=== PATIENT | female | born 1995 | race Caucasian/White ===

== ENCOUNTER 2018-05-31 16:55 | Emergency (ER) | payer BC, OTHER ==
[2018-05-31] MEDS ORDERED: NA CHLORIDE 0.9% 1,000 ML ONE (18:04)
--- NOTE | 2018-05-31 18:06 | RAD REPORT ---
EXAM DESCRIPTION: CT - Head Brain Wo Cont - 05/31/2018 5:58 pm CLINICAL HISTORY: HEADACHE COMPARISON: HEAD BRAIN W O CONTRAST dated 07/16/2011; HEAD BRAIN W O CONTRAST dated 06/29/2011 TECHNIQUE: All CT scans are performed using dose optimization technique as appropriate and may inclu de automated exposure control or mA/KV adjustment according to patient size. FINDINGS: No intracranial hemorrhage, hydrocephalus or extra-axial fluid collection.No areas of brai n edema or evidence of midline shift. The paranasal sinuses and mastoids are clear. The calvarium is intact. IMPRESSION: No acute intracranial abnormality.
[2018-05-31 18:08] LABS: Absolute Lymphocytes (CBC) 1.5 K/uL (0.7-4.9); Absolute Monocytes 0.4 K/uL (0.1-1.3); Absolute Neutrophil 4.4 K/uL (1.8-8.0); Basophils % 0.7 % (0-1.3); Eosinophils % 2.2 % (0-4.4); Hematocrit 40.5 % (36.0-45.0); Lymphocytes % 23.3 % (15.3-44.8); MCH 31.3 pg (27.0-35.0); MCV 91.3 fL (80-100); MPV 8.6 fL (7.6-11.3); Monocytes % 6.5 % (3.3-12.3); RBC Red Blood Cell Count 4.44 M/uL (3.86-4.86)
[2018-05-31 18:20] LABS: BUN Blood Urea Nitrogen 6 mg/dL (7-18); Bicarbonate 24 mmol/L (21-32); Glucose Level 81 mg/dL (74-106); Magnesium 2.1 mg/dL (1.8-2.4); Potassium 3.7 mmol/L (3.5-5.1); Sodium Level 143 mmol/L (136-145)
[2018-05-31] MEDS ORDERED: METOCLOPRAMIDE 10 MG/2mL INJ ONE (18:34)
[2018-05-31] MEDS ORDERED: DEXAMETHASONE 4 MG/ML VIAL ONE (18:35)
[2018-05-31] MEDS ORDERED: ONDANSETRON 4 MG/2 ML VIAL ONE (18:35)
--- NOTE | 2018-05-31 19:01 | RAD REPORT ---
EXAM DESCRIPTION: CT - Head angio - 05/31/2018 6:51 pm CLINICAL HISTORY: headache COMPARISON: Head Brain Wo Cont dated 05/31/2018; HEAD BRAIN W O CONTRAST dated 07/16/2011 TECHNIQUE: CT angiography of the head was performed with MIPs. All CT scans are performed using dose optimization technique as appropriate and may include automated exposure control or mA/KV adjustment according to patient size. FINDINGS: No evidence of aneurysm is detected. No flow-limiting stenosis or vascular malformation id entified. Antegrade flow is seen in the vertebral arteries. The vertebral arteries are codominant. The visualized dural venous sinuses are patent. IMPRESSION: No significant flow abnormality is detected.
[2018-05-31 19:34] LABS: Urine Blood NEGATIVE (NEG); Urine Glucose NEGATIVE (NEG); Urine Protein NEGATIVE (NEG); Urine Specific Gravity 1.005 (1.005-1.030)
--- NOTE | 2018-05-31 19:48 | ER ---
Nurse's Notes [facility] Name: America Gallegos Age: 22 yrs Sex: Female : 1995 Arrival Date: 05/31/2018 Time: 16:57 Bed 30 Private MD: Diagnosis: Headache Presentation: 05/31 17:10 Presenting complaint: Patient states: "I've been getting headaches for the last few aa5 months but over the last 3 days it's been worse". Pt also reports Nausea and vomiting. Transition of care: patient was not received from another setting of care. Onset of symptoms was 2017. Risk Assessment: Do you want to hurt yourself or someone else? Patient reports no desire to harm self or others. Initial Sepsis Screen: Does the patient meet any 2 criteria? No. Patient's initial sepsis screen is negative. Does the patient have a suspected source of infection? No. Patient's initial sepsis screen is negative. Care prior to arrival: None. 17:10 Method Of Arrival: Ambulatory aa5 17:10 Acuity: LYDIA 3 aa5 Triage Assessment: 18:00 Headache History: Denies prior headaches. General: Appears in no apparent distress. rv uncomfortable, Behavior is calm, cooperative. Pain: Pain currently is 10 out of 10 on a pain scale. Pain began suddenly, Also complains of no other associated symptoms. 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 - Social history:: Smoking status: Patient uses tobacco products, smokes one-half pack cigarettes per day. - Ebola Screening: : No symptoms or risks identified at this time. Screenin:59 Abuse screen: Denies threats or abuse. Denies injuries from another. Nutritional rv screening: No deficits noted. Tuberculosis screening: No symptoms or risk factors identified. Fall Risk None identified. Assessment: 17:59 General: Appears in no apparent distress. comfortable, Behavior is calm, cooperative. rv Pain: Complains of pain in head. Neuro: Level of Consciousness is awake, alert, obeys commands, Oriented to person, place, time, situation. Cardiovascular: Capillary refill < 3 seconds. Respiratory: Airway is patent. GI: No signs and/or symptoms were reported involving the gastrointestinal system. : No signs and/or symptoms were reported regarding the genitourinary system. EENT: No signs and/or symptoms were reported regarding the EENT system. Derm: Skin is intact. 19:17 Reassessment: Patient appears in no apparent distress at this time. Patient and/or rv family updated on plan of care and expected duration. Pain level reassessed. Patient is alert, oriented x 3, equal unlabored respirations, skin warm/dry/pink. Vital Signs: 17:12 BP 123 / 85; Pulse 87; Resp 16 S; Temp 98.7(TE); Pulse Ox 100% on R/A; Weight 58.97 kg aa5 (R); Height 5 ft. 7 in. (170.18 cm) (R); Pain 6/10; 19:16 BP 112 / 79; Pulse 71; Pulse Ox 100% on R/A; rv 19:48 BP 115 / 74; Pulse 72; Pulse Ox 100% on R/A; rv 17:12 Body Mass Index 20.36 (58.97 kg, 170.18 cm) aa5 ED Course: 16:57 Patient arrived in ED. mr 17:12 Triage completed. aa5 17:12 Arm band placed on. aa5 17:36 Thai Bright PA is PHCP. cp 17:36 Milan Edge MD is Attending Physician. cp 17:55 Inserted saline lock: 20 gauge in right antecubital area, using aseptic technique. rv Blood collected. 17:58 CT Head Brain wo Cont In Process Unspecified. EDMS 18:00 Patient has correct armband on for positive identification. Bed in low position. Call rv light in reach. Side rails up X 1. Adult w/ patient. Pulse ox on. NIBP on. 18:[address] nj 18:51 Head angio In Process Unspecified. EDMS 18:55 CT completed. Patient tolerated procedure well. Patient moved back from CT. nj 19:49 No provider procedures requiring assistance completed. IV discontinued, bleeding rv controlled, No redness/swelling at site. Pressure dressing applied. Administered Medications: 18:02 Drug: NS 0.9% 1000 ml Route: IV; Rate: 1 bolus; Site: right antecubital; rv 19:02 Follow up: IV Status: Completed infusion rv 19:01 Drug: Reglan 20 mg Route: IVP; Site: right antecubital; rv 19:01 Drug: Zofran 4 mg Route: IVP; Site: right antecubital; rv 19:01 Drug: Decadron - Dexamethasone 10 mg Route: IVP; Site: right antecubital; rv Outcome: 19:47 Discharge ordered by MD. cp 19:49 Discharged to home ambulatory. rv 19:49 Condition: improved 19:49 Discharge instructions given to patient, Instructed on discharge instructions, follow up and referral plans. medication usage, Demonstrated understanding of instructions, follow-up care, medications, Prescriptions given X 3. 19:52 Patient left the ED. rv Signatures: Dispatcher [employer] Rebeca Ricks KohliVeda lincoln, RN RN aa5 Thai Bright PA PA cp Jordan, Nathan nj Vicente, Ronaldo RN RN rv
--- NOTE | 2018-05-31 19:48 | EDPHYS ---
Physician Documentation [facility] Name: America Gallegos Age: 22 yrs Sex: Female : 1995 Arrival Date: 05/31/2018 Time: 16:57 Bed 30 Private MD: ED Physician Milan Edge HPI: 05/31 17:50 This 22 yrs old Female presents to ER via Ambulatory with complaints of cp Headache. 17:50 The patient complains of pain to the top of head and forehead. cp 17:50 The patient describes the headache as aching, waxing and waning. Onset: The cp symptoms/episode began/occurred for past few months, now persistent for past 3 days. 17:50 Associated signs and symptoms: Pertinent positives: nausea, Photophobia Pertinent cp negatives: altered mental status, neck stiffness, sinus congestion, sinus tenderness, vision loss, vomiting, weakness. Headache History: Denies prior headaches. 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 - Social history:: Smoking status: Patient uses tobacco products, smokes one-half pack cigarettes per day. - Ebola Screening: : No symptoms or risks identified at this time. ROS: 18:00 Constitutional: Negative for body aches, chills, fever, poor PO intake. cp 18:00 ENT: Negative for injury, pain, and discharge. cp 18:00 Eyes: Positive for photophobia, Negative for discharge, redness, vision loss. 18:00 Neck: Negative for pain with movement, pain at rest, stiffness. 18:00 Cardiovascular: Negative for chest pain, edema, palpitations. 18:00 Respiratory: Negative for cough, shortness of breath, wheezing. 18:00 Abdomen/GI: Positive for nausea, Negative for abdominal pain, vomiting, diarrhea, constipation. 18:00 Back: Negative for pain at rest, pain with movement, radiated pain. 18:00 : Negative for urinary symptoms, vaginal bleeding, vaginal discharge. 18:00 Skin: Negative for cellulitis, rash. 18:00 Neuro: Positive for headache, Negative for altered mental status, numbness, weakness. 18:00 All other systems are negative. Exam: 18:05 Constitutional: The patient appears in no acute distress, alert, awake, non-toxic, well cp developed, well nourished, uncomfortable. 18:05 Head/Face: Normocephalic, atraumatic. cp 18:05 Eyes: Periorbital structures: appear normal, Pupils: equal, round, and reactive to light and accomodation, Extraocular movements: intact throughout, Conjunctiva: normal, no exudate, no injection, Sclera: no appreciated abnormality, Lids and lashes: appear normal, bilaterally, Visual tejeda: are intact. 18:05 ENT: External ear(s): are unremarkable, Ear canal(s): are normal, clear, TM's: dullness, bilaterally, Nose: is normal, Mouth: Lips: moist, Oral mucosa: pink and intact, moist, Posterior pharynx: is normal, airway is patent, no erythema, no exudate. 18:05 Neck: ROM/movement: is normal, is supple, without pain, no range of motions limitations, no meningismus, no nuchal rigidity, Lymph nodes: no appreciated lymphadenopathy. 18:05 Chest/axilla: Inspection: normal, Palpation: is normal, no crepitus, no tenderness. 18:05 Cardiovascular: Rate: normal, Rhythm: regular, Heart sounds: murmur, not appreciated. 18:05 Respiratory: the patient does not display signs of respiratory distress, Respirations: normal, no use of accessory muscles, no retractions, no splinting, no tachypnea, labored breathing, is not present, Breath sounds: are clear throughout, no decreased breath sounds, no stridor, no wheezing. 18:05 Abdomen/GI: Inspection: abdomen appears normal, Bowel sounds: active, all quadrants, Palpation: abdomen is soft and non-tender, in all quadrants, rebound tenderness, is not appreciated, involuntary guarding, is not appreciated. 18:05 Back: pain, is absent, ROM is normal. 18:05 Skin: cellulitis, is not appreciated, no rash present. 18:05 Neuro: Orientation: to person, place \T\ time. Mentation: is normal, Cerebellar function: is grossly normal, Motor: moves all fours, strength is normal, Sensation: is normal. Vital Signs: 17:12 BP 123 / 85; Pulse 87; Resp 16 S; Temp 98.7(TE); Pulse Ox 100% on R/A; Weight 58.97 kg aa5 (R); Height 5 ft. 7 in. (170.18 cm) (R); Pain 6/10; 19:16 BP 112 / 79; Pulse 71; Pulse Ox 100% on R/A; rv 19:48 BP 115 / 74; Pulse 72; Pulse Ox 100% on R/A; rv 17:12 Body Mass Index 20.36 (58.97 kg, 170.18 cm) aa5 MDM: 17:36 Patient medically screened. cp 18:00 Differential diagnosis: cluster headache, meningitis, migraine, neoplasm, sinusitis, cp subarachnoid bleed, subdural hematoma, tension headache, traumatic injuries. 19:47 Data reviewed: vital signs, nurses notes, lab test result(s), radiologic studies, CT cp scan. 19:47 Counseling: I had a detailed discussion with the patient and/or guardian regarding: the cp historical points, exam findings, and any diagnostic results supporting the discharge/admit diagnosis, lab results, radiology results. Response to treatment: the patient's symptoms have markedly improved after treatment, VSS. Patient reports headache markedly improved, and as a result, I will discharge patient. 05/31 17:45 Order name: BMP; Complete Time: 18:22 cp 05/31 17:45 Order name: Magnesium; Complete Time: 18:22 cp 05/31 17:45 Order name: CT Head Brain wo Cont; Complete Time: 18:16 cp 05/31 17:45 Order name: CBC with Diff; Complete Time: 18:16 cp 05/31 19:17 Order name: Urine --Ancillary (enter results); Complete Time: 19:47 ds4 05/31 19:17 Order name: Urine Dipstick--Ancillary (enter results); Complete Time: 19:47 ds4 05/31 17:45 Order name: Urine Dipstick-Ancillary (obtain specimen); Complete Time: 19:15 cp 05/31 17:45 Order name: Urine Test (obtain specimen); Complete Time: 19:15 cp 05/31 18:26 Order name: Head angio; Complete Time: 19:10 EDMS 05/31 19:10 Interpretation: Report reviewed. cp 05/31 17:45 Order name: IV; Complete Time: 17:56 cp Administered Medications: 18:02 Drug: NS 0.9% 1000 ml Route: IV; Rate: 1 bolus; Site: right antecubital; rv 19:02 Follow up: IV Status: Completed infusion rv 19:01 Drug: Reglan 20 mg Route: IVP; Site: right antecubital; rv 19:01 Drug: Zofran 4 mg Route: IVP; Site: right antecubital; rv 19:01 Drug: Decadron - Dexamethasone 10 mg Route: IVP; Site: right antecubital; rv Disposition: 05/31/18 19:47 Discharged to Home. Impression: Headache. - Condition is Stable. - Discharge Instructions: Migraine Headache. - Prescriptions for Fiorinal 50- 325-40 mg Oral Capsule - take 1 capsule by ORAL route every 4 hours As needed - not to exceed 6 capsules per day; 20 capsule. Ibuprofen 800 mg Oral Tablet - take 1 tablet by ORAL route every 8 hours As needed take with food; 30 tablet. promethazine 25 mg Oral Tablet - take 1 tablet by ORAL route every 6 hours As needed; 20 tablet. - Medication Reconciliation Form, Thank You Letter, Antibiotic Education, Prescription Opioid Use form. - Follow up: Private Physician; When: 2 - 3 days; Reason: Recheck today's complaints. - Problem is new. - Symptoms have improved. Addendum: 06/03/2018 07:48 Co-signature as Attending Physician, Milan Edge MD. r n Signatures: Dispatcher [employer] EDMilan Neumann MD MD rn Calderon, Audri RN RN aa5 Thai Bright PA PA cp Stevie Dennison RN RN rv Corrections: (The following items were deleted from the chart) 05/31 19:52 19:47 05/31/2018 19:47 Discharged to Home. Impression: Headache. Condition is Stable. rv Forms are Medication Reconciliation Form, Thank You Letter, Antibiotic Education, Prescription Opioid Use. Follow up: Private Physician; When: 2 - 3 days; Reason: Recheck today's complaints. Problem is new. Symptoms have improved. cp
[2018-05-31 20:07] VITALS: TEMP 98.7; O2SAT 100
[2018-05-31 20:09] VITALS: BP 115/74
== END 2018-05-31 19:52 | disposition home or self-care (01) ==
LOC: ER 16:55
DX: R51 Headache (principal); F17.210 Nicotine dependence, cigarettes, uncomplicated
CPT/HCPCS: 36415; 70450; 70496; 80048; 81003; 81025; 83735; 85025; 96361; 96374; 96375; 99284; J2405; J2765; J7030; Q9967

== ENCOUNTER 2018-11-08 09:12 | Emergency (ER) | payer BC ==
--- NOTE | 2018-11-08 12:29 | ER ---
Nurse's Notes [facility] Name: America Gallegos Age: 23 yrs Sex: Female : 1995 Arrival Date: 11/08/2018 Time: 09:15 Bed Waiting Private MD: Diagnosis: Presentation: 11/08 09:41 Presenting complaint: Patient states: Sore and swollen throat x 1 month, states, " I ph feel like it's in my ears now when I turn my head." Denies fever, N/V/D. Transition of care: patient was not received from another setting of care. Onset of symptoms was November 08, 2018. Risk Assessment: Do you want to hurt yourself or someone else? Patient reports no desire to harm self or others. Initial Sepsis Screen: Does the patient meet any 2 criteria? No. Patient's initial sepsis screen is negative. Does the patient have a suspected source of infection? No. Patient's initial sepsis screen is negative. Care prior to arrival: None. 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 - Social history:: Smoking status: Patient/guardian denies using tobacco. - Ebola Screening: : No symptoms or risks identified at this time. Vital Signs: 09:42 BP 109 / 73; Pulse 95; Resp 18; Temp 98.0; Pulse Ox 98% on R/A; Weight 61.23 kg; Height ph 5 ft. 6 in. (167.64 cm); Pain 5/10; 09:42 Body Mass Index 21.79 (61.23 kg, 167.64 cm) ph ED Course: 09:15 Patient arrived in ED. as 09:42 Triage completed. ph 09:43 Arm band placed on. ph Administered Medications: No medications were administered Outcome: 12:27 Patient left the ED. sv Signatures: Tara Cummins RN RN sv Martinez, Amelia as Hall, Patricia, RN RN
[2018-11-08 12:34] VITALS: BP 109/73; TEMP 98; O2SAT 98
== END 2018-11-08 12:27 | disposition left against medical advice (07) ==
LOC: ER 09:12
DX: Z53.21 Procedure and treatment not carried out due to patient leaving prior to being seen by health care provider (principal)
CPT/HCPCS: 87070; 87081; 99281

== ENCOUNTER 2018-11-08 17:26 | Emergency (ER) | payer BC ==
--- NOTE | 2018-11-08 18:47 | EDPHYS ---
Physician Documentation [facility] Name: America Gallegos Age: 23 yrs Sex: Female : 1995 Arrival Date: 11/08/2018 Time: 17:27 Bed 9 Private MD: ED Physician Kyle Wright HPI: 11/08 18:42 This 23 yrs old Female presents to ER via Ambulatory with complaints of Sore pm1 Throat. 18:42 This 23 yrs old Female presents to ER via Ambulatory with complaints of Sore pm1 Throat. 18:42 The patient presents with sore throat. The patient describes throat pain as constant, pm1 scratchy. Onset: The symptoms/episode began/occurred 4 week(s) ago. Severity of symptoms: in the emergency department the symptoms are actually worse. Modifying factors: The symptoms are alleviated by nothing, the symptoms are aggravated by swallowing, Patient's oral intake status: good unaware of sick contact. Associated signs and symptoms: Pertinent negatives chest pain, cough, earache, fever, flu-like symptoms, headache, nausea, rhinorrhea, shortness of breath, vomiting. The patient has not experienced similar symptoms in the past. The patient has not recently seen a physician. 1/2 pack per day smoking. Historical: - Allergies: 17:32 No Known Allergies; sv - PMHx: 17:32 None; sv - PSHx: 17:32 None; sv - Immunization history:: Adult Immunizations up to date. - Social history:: Smoking status: Patient uses tobacco products, smokes one-half pack cigarettes per day. - Ebola Screening: : No symptoms or risks identified at this time. ROS: 18:42 Constitutional: Negative for fever, chills, and weight loss, Eyes: Negative for injury, pm1 pain, redness, and discharge, Neck: Negative for injury, pain, and swelling. 18:42 Cardiovascular: Negative for chest pain, palpitations, and edema, Respiratory: Negative for shortness of breath, cough, wheezing, and pleuritic chest pain, Abdomen/GI: Negative for abdominal pain, nausea, vomiting, diarrhea, and constipation, Back: Negative for injury and pain, : Negative for injury, bleeding, discharge, and swelling, MS/Extremity: Negative for injury and deformity, Skin: Negative for injury, rash, and discoloration, Neuro: Negative for headache, weakness, numbness, tingling, and seizure. 18:42 ENT: Positive for sore throat, Negative for drainage from ear(s), ear pain, sinus congestion, sinus pain, difficulty swallowing, difficulty handling secretions, hoarseness. Exam: 18:42 Constitutional: This is a well developed, well nourished patient who is awake, alert, pm1 and in no acute distress. Head/Face: Normocephalic, atraumatic. Eyes: Pupils equal round and reactive to light, extra-ocular motions intact. Lids and lashes normal. Conjunctiva and sclera are non-icteric and not injected. Cornea within normal limits. Periorbital areas with no swelling, redness, or edema. 18:42 Neck: Trachea midline, no thyromegaly or masses palpated, and no cervical lymphadenopathy. Supple, full range of motion without nuchal rigidity, or vertebral point tenderness. No Meningismus. Chest/axilla: Normal chest wall appearance and motion. Nontender with no deformity. No lesions are appreciated. Cardiovascular: Regular rate and rhythm with a normal S1 and S2. No gallops, murmurs, or rubs. Normal PMI, no JVD. No pulse deficits. Respiratory: Lungs have equal breath sounds bilaterally, clear to auscultation and percussion. No rales, rhonchi or wheezes noted. No increased work of breathing, no retractions or nasal flaring. Abdomen/GI: Soft, non-tender, with normal bowel sounds. No distension or tympany. No guarding or rebound. No evidence of tenderness throughout. Back: No spinal tenderness. No costovertebral tenderness. Full range of motion. Skin: Warm, dry with normal turgor. Normal color with no rashes, no lesions, and no evidence of cellulitis. MS/ Extremity: Pulses equal, no cyanosis. Neurovascular intact. Full, normal range of motion. 18:42 ENT: External ear(s): are unremarkable, Ear canal(s): are normal, TM's: are normal, Nose: no acute changes, Mouth: is normal, no gum abnomalities, no lip abnormalities, no mucosal abnormalities, no tongue abnormalities, Posterior pharynx: is normal, airway is patent, no erythema, no exudate, no peritonsilar mass, no pooling of secretions, no swelling, normal tonsil apperance, normal sized tonsils, normal uvula appearance, normal uvula size. 18:42 Neuro: Orientation: is normal, Motor: is normal. Vital Signs: 17:32 BP 123 / 88; Pulse 92; Resp 18; Temp 98.8; Pulse Ox 99% ; Weight 61.23 kg; Height 5 ft. sv 6 in. (167.64 cm); Pain 7/10; 17:32 Body Mass Index 21.79 (61.23 kg, 167.64 cm) sv MDM: 18:37 Patient medically screened. pm1 18:46 Data reviewed: vital signs. Data interpreted: Pulse oximetry: on room air is 99 %. pm1 Interpretation: normal. Counseling: I had a detailed discussion with the patient and/or guardian regarding: the historical points, exam findings, and any diagnostic results supporting the discharge/admit diagnosis, the need for outpatient follow up, to return to the emergency department if symptoms worsen or persist or if there are any questions or concerns that arise at home. 11/08 17:32 Order name: Strep; Complete Time: 18:37 sv Administered Medications: No medications were administered Disposition: 11/08/18 18:46 Discharged to Home. Impression: Acute pharyngitis. - Condition is Stable. - Discharge Instructions: Pharyngitis. - Medication Reconciliation Form, Thank You Letter form. - Follow up: Emergency Department; When: As needed; Reason: Worsening of condition. Follow up: Private Physician; When: 2 - 3 days; Reason: Recheck today's complaints, Continuance of care, Re-evaluation by your physician. - Problem is new. - Symptoms have improved. Addendum: 11/11/2018 07:13 Co-signature as Attending Physician, Kyle Wright MD I agree with the assessment and k dr plan of care. Signatures: Dispatcher [employer] [facility] Olga Lezama RN RN dmTara Ortiz RN RN sv Rittger, Kevin, MD MD [facility] Agustin Munoz NP PHYSICAL AERODYNAMICIST pm1 Corrections: (The following items were deleted from the chart) 11/08 19:38 18:46 11/08/2018 18:46 Discharged to Home. Impression: Acute pharyngitis. Condition is dm5 Stable. Forms are Medication Reconciliation Form, Thank You Letter, Antibiotic Education, Prescription Opioid Use. Follow up: Emergency Department; When: As needed; Reason: Worsening of condition. Follow up: Private Physician; When: 2 - 3 days; Reason: Recheck today's complaints, Continuance of care, Re-evaluation by your physician. Problem is new. Symptoms have improved. pm1
--- NOTE | 2018-11-08 18:47 | ER ---
Nurse's Notes [facility] Name: America Gallegos Age: 23 yrs Sex: Female : 1995 Arrival Date: 11/08/2018 Time: 17:27 Bed 9 Private MD: Diagnosis: Acute pharyngitis Presentation: 11/08 17:31 Presenting complaint: Patient states: sore throat x 1 month. Transition of care: sv patient was not received from another setting of care. Onset of symptoms was October 2018. Care prior to arrival: None. 17:31 Method Of Arrival: Ambulatory sv 17:31 Acuity: LYDIA 4 sv 19:38 Risk Assessment: Do you want to hurt yourself or someone else? Patient reports no dm5 desire to harm self or others. Initial Sepsis Screen: Does the patient meet any 2 criteria? No. Patient's initial sepsis screen is negative. Does the patient have a suspected source of infection? No. Patient's initial sepsis screen is negative. Triage Assessment: 19:38 General: Appears in no apparent distress. General: Appears uncomfortable, Behavior is dm5 calm, cooperative. Historical: - Allergies: 17:32 No Known Allergies; sv - PMHx: 17:32 None; sv - PSHx: 17:32 None; sv - Immunization history:: Adult Immunizations up to date. - Social history:: Smoking status: Patient uses tobacco products, smokes one-half pack cigarettes per day. - Ebola Screening: : No symptoms or risks identified at this time. Screenin:30 Abuse screen: Denies threats or abuse. Denies injuries from another. Nutritional dm5 screening: No deficits noted. Tuberculosis screening: No symptoms or risk factors identified. Fall Risk None identified. Assessment: 18:30 General: Appears in no apparent distress. uncomfortable, Behavior is calm, cooperative. dm5 Pain: Complains of pain in throat Pain currently is 9 out of 10 on a pain scale. Neuro: Level of Consciousness is awake, alert, obeys commands, Oriented to person, place, time. Respiratory: Airway is patent Respiratory effort is even, unlabored, Respiratory pattern is regular. EENT: Throat is reddened. Vital Signs: 17:32 BP 123 / 88; Pulse 92; Resp 18; Temp 98.8; Pulse Ox 99% ; Weight 61.23 kg; Height 5 ft. sv 6 in. (167.64 cm); Pain 7/10; 17:32 Body Mass Index 21.79 (61.23 kg, 167.64 cm) sv ED Course: 17:27 Patient arrived in ED. as 17:31 Triage completed. sv 17:32 Arm band placed on. sv 18:30 Patient has correct armband on for positive identification. dm5 18:30 No provider procedures requiring assistance completed. Patient did not have IV access dm5 during this emergency room visit. 18:37 Agustin Munoz NP is PHCP. pm1 18:37 Kyle Wright MD is Attending Physician. pm1 19:36 Olga Lezama, RN is Primary Nurse. dm5 Administered Medications: No medications were administered Outcome: 18:30 Discharged to home ambulatory. dm5 18:30 Condition: good 18:30 Discharge instructions given to patient, Instructed on discharge instructions, follow up and referral plans. Demonstrated understanding of instructions, follow-up care. 18:46 Discharge ordered by MD. pm1 19:38 Patient left the ED. dm5 Signatures: Olga Lezama, RN RN dmTara Ortiz RN RN Radha Sanabria as Agustin Munoz NP CORPORATE DEVELOPMENT MANAGER pm1
[2018-11-08 19:43] VITALS: BP 123/88; TEMP 98.8; O2SAT 99
== END 2018-11-08 19:38 | disposition home or self-care (01) ==
LOC: ER 17:26
DX: J02.9 Acute pharyngitis, unspecified (principal); F17.210 Nicotine dependence, cigarettes, uncomplicated
CPT/HCPCS: 87081; 99281

== ENCOUNTER 2021-07-05 21:15 | Emergency (ER) | payer SELFPAY ==
--- NOTE | 2021-07-05 21:44 | ER ---
Nurse's Notes [facility] Name: America Gallegos Age: 25 yrs Sex: Female : 1995 Arrival Date: 07/05/2021 Time: 21:20 Bed Waiting Private MD: Diagnosis: Radiculopathy, cervical region Presentation: 07/05 21:40 Chief complaint: Patient states: right shoulder pain and neck pain, right pain tingling ld1 and hurting. Coronavirus screen: At this time, the client does not indicate any symptoms associated with coronavirus-19. Ebola Screen: No symptoms or risks identified at this time. Initial Sepsis Screen: Does the patient meet any 2 criteria? No. Patient's initial sepsis screen is negative. Does the patient have a suspected source of infection? No. Patient's initial sepsis screen is negative. Risk Assessment: Do you want to hurt yourself or someone else? Patient reports no desire to harm self or others. Onset of symptoms was July 05, 2021. 21:40 Method Of Arrival: Ambulatory ld1 21:40 Acuity: LYDIA 4 ld1 Triage Assessment: 21:43 General: Appears in no apparent distress. comfortable, Behavior is calm, cooperative, ld1 appropriate for age. Pain: Complains of pain in face, anterior aspect of right shoulder and right sternocleidomastoid Pain does not radiate. Pain currently is 8 out of 10 on a pain scale. Quality of pain is described as throbbing, Pain began 1 day ago. Is continuous. Neuro: Level of Consciousness is awake, alert, obeys commands, Oriented to person, place, time, situation. Cardiovascular: Capillary refill < 3 seconds Patient's skin is warm and dry. Respiratory: Airway is patent Respiratory effort is even, unlabored, Respiratory pattern is regular, symmetrical. GI: Abdomen is flat, non-distended. Musculoskeletal: Reports pain in neck. [employer]: 21:43 LMP N/A - Depo-provera ld1 Historical: - Allergies: 21:43 No Known Allergies; ld1 - Home Meds: 21:43 None [Active]; ld1 - PMHx: 21:43 None; ld1 - PSHx: 21:43 None; ld1 - Immunization history:: Adult Immunizations up to date, Client reports having NOT received the Covid vaccine. - Social history:: Smoking status: Patient denies any tobacco usage or history of. Patient/guardian denies using alcohol. Screenin:49 Abuse screen: Denies threats or abuse. Denies injuries from another. Nutritional ld1 screening: No deficits noted. Tuberculosis screening: No symptoms or risk factors identified. Fall Risk None identified. Assessment: 21:49 Reassessment: See triage assessment. ld1 Vital Signs: 21:40 BP 138 / 91; Pulse 107; Resp 18; Temp 98.0(TE); Pulse Ox 100% on R/A; Weight 77.11 kg; ld1 Height 5 ft. 6 in. (167.64 cm); Pain 8/10; 21:40 Body Mass Index 27.44 (77.11 kg, 167.64 cm) ld1 ED Course: 21:20 Patient arrived in ED. ja2 21:43 Triage completed. ld1 21:43 Nesha Cornell FNP-C is [facility]. kb 21:43 Jose F Cartagena MD is Attending Physician. kb 21:43 Arm band placed on right wrist. ld1 21:49 Patient has correct armband on for positive identification. Call light in reach. Pulse ld1 ox on. NIBP on. 21:49 No provider procedures requiring assistance completed. Patient did not have IV access ld1 during this emergency room visit. Administered Medications: 21:49 Drug: [place] (HYDROcodone-acetaminophen) 10 mg-325 mg 1 tabs Route: PO; ld1 21:49 Drug: predniSONE 40 mg Route: PO; ld1 Outcome: 21:44 Discharge ordered by . kb 21:49 Discharged to home ambulatory. ld1 21:49 Condition: stable 21:49 Discharge instructions given to patient, Instructed on discharge instructions, follow up and referral plans. no driving heavy equipment, medication usage, Demonstrated understanding of instructions, follow-up care, medications, Prescriptions given X 2. 21:50 Patient left the ED. ld1 Signatures: Nesha Cornell FNP-C FNP-Ckb Dibbern, Lauren, RN RN ld1 Tawny George
[2021-07-05] MEDS ORDERED: predniSONE 20 MG TAB ONE (21:45)
--- NOTE | 2021-07-05 21:45 | EDPHYS ---
Physician Documentation [facility] Name: America Gallegos Age: 25 yrs Sex: Female : 1995 Arrival Date: 07/05/2021 Time: 21:20 Bed Waiting Private MD: ED Physician Jose F Cartagena HPI: 07/05 21:46 This 25 yrs old Female presents to ER via Ambulatory with complaints of kb Shoulder Pain. 21:48 The patient or guardian complains of pain. The symptoms are located on the right kb posterior aspect of neck. Onset: The symptoms/episode began/occurred today. Context: The problem was sustained at home, The neck injury/problem resulted from from unknown cause. Associated signs and symptoms: Pertinent positives: tingling, Pertinent negatives: chills, constipation, fever, headache, bladder incontinence, bowel incontinence, nausea, numbness, vomiting, weakness, The patient denies any alcohol use. The patient is not apparently intoxicated. No neurological symptoms were experienced by the patient prior to arrival in the emergency department. The pain radiates to the right arm. Modifying factors: The symptoms are alleviated by nothing. the symptoms are aggravated by nothing. Severity of symptoms: At their worst the symptoms were moderate, in the emergency department the symptoms are unchanged. The patient has experienced similar episodes in the past, a few times. The patient has not recently seen a physician. Pt reports neck pain that radiates down right arm. States this happens once a year around this time. No tenderness upon palpation. Pain worse with ROM of shoulder. 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 - Social history:: Smoking status: Patient denies any tobacco usage or history of. Patient/guardian denies using alcohol. ROS: 21:45 Constitutional: Negative for fever, chills, and weight loss. kb 21:45 Neck: Positive for pain with movement. 21:45 MS/extremity: Positive for pain, tingling, of the right arm. 21:45 All other systems are negative. Exam: 21:46 Constitutional: This is a well developed, well nourished patient who is awake, alert, kb and in no acute distress. Head/Face: Normocephalic, atraumatic. ENT: Moist Mucous membranes Neck: Trachea midline, no thyromegaly or masses palpated, and no cervical lymphadenopathy. Supple, full range of motion without nuchal rigidity, or vertebral point tenderness. No Meningismus. Respiratory: Respirations even and unlabored. No increased work of breathing, no retractions or nasal flaring. Skin: Warm, dry with normal turgor. Normal color. Neuro: Awake and alert, GCS 15, oriented to person, place, time, and situation. Moves all extremities. Normal gait. Psych: Awake, alert, with orientation to person, place and time. Behavior, mood, and affect are within normal limits. 21:46 Musculoskeletal/extremity: ROM: limited active range of motion due to pain, in the posterior aspect of right shoulder. Vital Signs: 21:40 BP 138 / 91; Pulse 107; Resp 18; Temp 98.0(TE); Pulse Ox 100% on R/A; Weight 77.11 kg; ld1 Height 5 ft. 6 in. (167.64 cm); Pain 8/10; 21:40 Body Mass Index 27.44 (77.11 kg, 167.64 cm) ld1 MDM: 21:44 Patient medically screened. kb 21:45 Data reviewed: vital signs, nurses notes. Data interpreted: Pulse oximetry: on room air kb is 100 %. Interpretation: normal. Counseling: I had a detailed discussion with the patient and/or guardian regarding: the historical points, exam findings, and any diagnostic results supporting the discharge/admit diagnosis, the need for outpatient follow up, a family practitioner, to return to the emergency department if symptoms worsen or persist or if there are any questions or concerns that arise at home. Administered Medications: 21:49 Drug: [place] (HYDROcodone-acetaminophen) 10 mg-325 mg 1 tabs Route: PO; ld1 21:49 Drug: predniSONE 40 mg Route: PO; ld1 Disposition: 23:23 Co-signature as Attending Physician, Jose F Cartagena MD. [email or web address] Disposition Summary: 07/05/21 21:44 Discharge Ordered Location: Home kb Condition: Stable kb Diagnosis - Radiculopathy, cervical region kb Followup: kb - With: Emergency Department - When: As needed - Reason: Worsening of condition Followup: kb - With: Private Physician - When: 2 - 3 days - Reason: Recheck today's complaints, Continuance of care, Re-evaluation by your physician Discharge Instructions: - Discharge Summary Sheet kb - Cervical Radiculopathy, [id number] kb Forms: - Medication Reconciliation Form kb - Thank You Letter kb - Antibiotic Education kb - Prescription Opioid Use kb Prescriptions: - Cyclobenzaprine 10 mg Oral Tablet - take 1 tablet by ORAL route every 8 hours As needed; 21 tablet; Refills: 0, kb Product Selection Permitted - Diclofenac Sodium 75 mg Oral tablet,delayed release (DR/EC) - take 1 tablet by ORAL route 2 times per day As needed; 30 tablet; Refills: 0, kb Product Selection Permitted Signatures: Nesha Cornell, KEN-C KEN-Jose F Calvillo MD MD 7 Rosita Taveras RN RN ld1
[2021-07-05] MEDS ORDERED: HYDROCODONE/APAP 10/325 TAB ONE (21:46)
[2021-07-05 22:13] VITALS: BP 138/91; TEMP 98; O2SAT 100
== END 2021-07-05 21:50 | disposition home or self-care (01) ==
LOC: ER 21:15
DX: M54.12 Radiculopathy, cervical region (principal)
CPT/HCPCS: 99283; J7512

== ENCOUNTER 2021-08-25 04:52 | Emergency (ER) | payer SELFPAY ==
--- NOTE | 2021-08-25 05:18 | ER ---
Nurse's Notes [facility] Name: America Gallegos Age: 25 yrs Sex: Female : 1995 Arrival Date: 08/25/2021 Time: 04:55 Bed 23 [facility] MD: Diagnosis: SARS-associated coronavirus as the cause of diseases classified elsewhere Presentation: 08/25 05:11 Chief complaint: Patient states: Fever and headache. Coronavirus screen: Client reports sv1 previous positive COVID test result. Ebola Screen: No symptoms or risks identified at this time. Initial Sepsis Screen: Does the patient meet any 2 criteria? No. Patient's initial sepsis screen is negative. Initial Sepsis Screen: Does the patient have a suspected source of infection? No. Patient's initial sepsis screen is negative. Risk Assessment: Do you want to hurt yourself or someone else? Patient reports no desire to harm self or others. Onset of symptoms was August 25, 2021. 05:11 Method Of Arrival: Ambulatory sv1 05:11 Acuity: LYDIA 3 sv1 Triage Assessment: 05:10 Headache History: Denies prior headaches. General: Appears uncomfortable. General: sv1 Behavior is calm, cooperative. Pain: Pain began 1 hour ago. Neuro: No deficits noted. 05:13 Pain: Complains of pain in scalp Pain currently is 7 out of 10 on a pain scale. Also sv1 complains of no other associated symptoms. 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 - Social history:: Smoking status: unknown. - Family history:: not pertinent. - Hospitalizations: : No recent hospitalization is reported. Screenin:14 Abuse screen: None. Nutritional screening: No deficits noted. Tuberculosis screening: sv1 No symptoms or risk factors identified. Fall Risk None identified. No fall in past 12 months (0 pts). No secondary diagnosis (0 pts). No IV (0 pts). Ambulatory Aid- None/Bed Rest/Nurse Assist (0 pts). Gait- Normal/Bed Rest/Wheelchair (0 pts) Mental Status- Oriented to own ability (0 pts). Assessment: 05:14 Reassessment: CC of headache and fever. Current temp 100.0. The provider is at the sv1 bedside.. 05:26 Pain: Pain currently is 2 out of 10 on a pain scale. sv1 05:26 Reassessment: Tolerated po meds well. Cleared for discharged to home by the provider. . sv1 Vital Signs: 05:07 BP 121 / 74; Pulse 115; Resp 18; Temp 100.0; Pulse Ox 99% 0 lpm ; Weight 74.84 kg; sv1 Height 5 ft. 8 in. (172.72 cm); Pain 0/10; 05:07 Body Mass Index 25.09 (74.84 kg, 172.72 cm) sv1 ED Course: 04:55 Patient arrived in ED. ja2 04:57 Milan Edge MD is Attending Physician. rn 05:07 Stas eVla, CORA is Primary Nurse. sv1 05:07 Arm band placed on right wrist. sv1 05:13 Triage completed. sv1 05:14 Patient has correct armband on for positive identification. Bed in low position. Call sv1 light in reach. Side rails up X2. 05:28 No provider procedures requiring assistance completed. Patient did not have IV access sv1 during this emergency room visit. Administered Medications: 05:10 Drug: Motrin (ibuprofen) 800 mg Route: PO; sv1 05:26 Follow up: Response: No adverse reaction sv1 Outcome: 05:18 Discharge ordered by . rn 05:28 Discharged to home ambulatory. sv1 05:28 Condition: stable 05:28 Discharge instructions given to patient. 05:29 Patient left the ED. sv1 Signatures: Milan Edge MD MD rn Alexander, Jessica ja Stas Vela, RN RN sv1
--- NOTE | 2021-08-25 05:18 | EDPHYS ---
Physician Documentation [facility] Name: America Gallegos Age: 25 yrs Sex: Female : 1995 Arrival Date: 08/25/2021 Time: 04:55 Bed 23 Private MD: ED Physician Milan Edge HPI: 08/25 05:13 This 25 yrs old Female presents to ER via Ambulatory with complaints of Headache, Sore rn Throat, Congestion, Fever. 05:14 The patient or guardian reports cough, that is intermittent, with no sputum, flu rn symptoms. 05:14 Onset: The symptoms/episode began/occurred 3 day(s) ago. Severity of symptoms: At their rn worst the symptoms were mild, in the emergency department the symptoms are unchanged. Modifying factors: The symptoms are alleviated by nothing, the symptoms are aggravated by nothing. Associated signs and symptoms: Pertinent positives: diarrhea, fever, nausea, rhinorrhea, sore throat, Pertinent negatives: chest pain. The patient has not experienced similar symptoms in the past. The patient has not recently seen a physician. Patient reports fever, cough, fatigue, sore throat and headache for a few days. Took a rapid Covid test at home and was positive. No other medical problems. Did not take any fever medication prior to arrival.. 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 - Social history:: Smoking status: unknown. - Family history:: not pertinent. - Hospitalizations: : No recent hospitalization is reported. ROS: 05:14 Constitutional: Positive for fever and chills Eyes: Negative for injury, pain, redness, rn and discharge, ENT: Positive sore throat and congestion Neck: Negative for injury, pain, and swelling, Cardiovascular: Negative for chest pain, palpitations, and edema, Respiratory: Positive for cough Abdomen/GI: Positive for diarrhea Back: Negative for injury and pain, MS/Extremity: Negative for injury and deformity, Skin: Negative for injury, rash, and discoloration, Neuro: Positive for headache Exam: 05:14 Constitutional: This is a well developed, well nourished patient who is awake, alert, rn and in no acute distress. Ambulatory to room without difficulty or requiring assistance Head/Face: Normocephalic, atraumatic. Eyes: Periorbital areas with no swelling, redness, or edema. ENT: No stridor Cardiovascular: Tachycardic, regular. No pulse deficits. Respiratory: No increased work of breathing, no retractions or nasal flaring. Abdomen/GI: Soft, non-tender Skin: Warm, dry MS/ Extremity: Pulses equal, no cyanosis. Neuro: Awake and alert, GCS 15 Vital Signs: 05:07 BP 121 / 74; Pulse 115; Resp 18; Temp 100.0; Pulse Ox 99% 0 lpm ; Weight 74.84 kg; sv1 Height 5 ft. 8 in. (172.72 cm); Pain 0/10; 05:07 Body Mass Index 25.09 (74.84 kg, 172.72 cm) sv1 MDM: 04:57 Patient medically screened. rn 05:14 Differential Diagnosis: Upper Respiratory Infection Viral Syndrome Other Covid. Data rn reviewed: vital signs, nurses notes, and as a result, I will discharge patient. Counseling: I had a detailed discussion with the patient and/or guardian regarding: the historical points, exam findings, and any diagnostic results supporting the discharge/admit diagnosis, the need for outpatient follow up, to return to the emergency department if symptoms worsen or persist or if there are any questions or concerns that arise at home. Special discussion: I discussed with the patient/guardian in detail that at this point there is no indication for admission to the hospital. It is understood, however, that if the symptoms persist or worsen the patient needs to return immediately for re-evaluation. ED course: No need for retesting, she has results of rapid test at home and symptoms that correspond to Covid. No oxygen requirement. Given Motrin here. Will DC home.. Administered Medications: 05:10 Drug: Motrin (ibuprofen) 800 mg Route: PO; sv1 05:26 Follow up: Response: No adverse reaction sv1 Disposition Summary: 08/25/21 05:18 Discharge Ordered Location: Home rn Problem: new rn Symptoms: are unchanged rn Condition: Stable rn Diagnosis - SARS-associated coronavirus as the cause of diseases classified elsewhere rn Followup: rn - With: Private Physician - When: As needed - Reason: Recheck today's complaints, Re-evaluation by your physician Discharge Instructions: - Discharge Summary Sheet rn - COVID-19 rn - 10 Things You Can Do to Manage Your COVID-19 Symptoms at Home - [facility] rn - Viral Illness, Adult rn - Prevent the Spread of COVID-19 if You Are Sick - [facility] rn Forms: - Medication Reconciliation Form rn - Thank You Letter rn - Antibiotic infection control rn - Prescription Opioid Use rn Signatures: Milan Edge MD MD rn Villicano, Steven, RN RN sv1
[2021-08-25] MEDS ORDERED: IBUPROFEN 400 MG TAB ONE (05:22)
[2021-08-25 05:34] VITALS: BP 121/74; TEMP 100; O2SAT 99
== END 2021-08-25 05:29 | disposition home or self-care (01) ==
LOC: ER 04:52
DX: U07.1 COVID-19 (principal)
CPT/HCPCS: 99283

== ENCOUNTER 2023-01-15 17:46 | Emergency (ER) | payer BC ==
[2023-01-15] MEDS ORDERED: IBUPROFEN 400 MG TAB ONE (18:42)
[2023-01-15] MEDS ORDERED: dexAMETHasone 10 MG/ML VIAL ONE (19:21)
--- NOTE | 2023-01-15 20:05 | ER ---
Nurse's Notes [facility] Name: America Gallegos Age: 27 yrs Sex: Female : 1995 Arrival Date: 01/15/2023 Time: 17:46 Bed 12 Private MD: Diagnosis: SARS-associated coronavirus as the cause of diseases classified elsewhere Presentation: 01/15 18:25 Chief complaint: Patient states: body aches, throat pain, head feels fuzzy, started a iw couple hours ago , low grade fever an hour ago. Coronavirus screen: Client presents with at least one sign or symptom that may indicate coronavirus-19. Ebola Screen: Patient negative for fever greater than or equal to 101.5 degrees Fahrenheit, and additional compatible Ebola Virus Disease symptoms Patient denies exposure to infectious person. Patient denies travel to an Ebola-affected area in the 21 days before illness onset. No symptoms or risks identified at this time. Initial Sepsis Screen: Does the patient meet any 2 criteria? No. Patient's initial sepsis screen is negative. Does the patient have a suspected source of infection? No. Patient's initial sepsis screen is negative. Risk Assessment: Do you want to hurt yourself or someone else? Patient reports no desire to harm self or others. Onset of symptoms was January 15, 2023. 18:25 Acuity: LYDIA 4 iw 18:25 Method Of Arrival: Ambulatory iw Triage Assessment: 20:17 Pain: Complains of pain in Generalized Pain currently is 2 out of 10 on a pain scale. [facility] Historical: - Allergies: 18:27 No Known Allergies; iw - Home Meds: 18:27 depo shot [Active]; iw - PMHx: 18:27 None; iw - PSHx: 18:27 None; iw - Immunization history:: Adult Immunizations. - Social history:: Smoking status: . Screenin:07 [facility] ED Fall Risk Assessment (Adult) History of falling in the last 3 months, nj including since admission No falls in past 3 months (0 pts) Confusion or Disorientation No (0 pts) Intoxicated or Sedated No (0 pts) Impaired Gait No (0 pts) Mobility Assist Device Used No (0 pt) Altered Elimination No (0 pt) Score/Fall Risk Level 0 - 2 = Low Risk Oriented to surroundings, Maintained a safe environment, Hourly rounding (assess needs \T\ fall precautionary measures) done. Abuse screen: Denies threats or abuse. Denies injuries from another. Nutritional screening: No deficits noted. Tuberculosis screening: No symptoms or risk factors identified. Assessment: 20:06 Reassessment: Patient appears in no apparent distress at this time. Patient and/or nj1 family updated on plan of care and expected duration. Pain level reassessed. Patient is alert, oriented x 3, equal unlabored respirations, skin warm/dry/pink. General: Appears in no apparent distress. comfortable, Behavior is calm, cooperative, appropriate for age. Neuro: Level of Consciousness is awake, alert, obeys commands, Oriented to person, place, time, situation. Cardiovascular: Patient's skin is warm and dry. Respiratory: Airway is patent Respiratory effort is even, unlabored. Vital Signs: 18:25 BP 115 / 86; Pulse 100; Resp 16; Temp 98.9; Pulse Ox 100% on R/A; Weight 78.02 kg; iw Height 5 ft. 6 in. ; Pain 5/10; 20:18 BP 136 / 88; Pulse 105; Resp 18; Temp 99.5(O); Pulse Ox 100% on R/A; Pain 2/10; nj1 18:25 Body Mass Index 27.76 (78.02 kg, 167.64 cm) iw 18:25 Pain Scale: Adult 20:18 Pain Scale: Adult nj1 ED Course: 17:48 Patient arrived in ED. mr 17:54 [facility] 17:54 James Segura DO is Attending Physician. [facility] 18:27 Triage completed. iw 18:27 Arm band placed on. iw 18:34 Shobha Carpenter, RN is Primary Nurse. iw 18:34 Influenza Screen (a \T\ B) Sent. iw 18:34 COVID-19 SARS RT PCR Sent. iw 18:34 Strep Sent. 19:00 PHCP role handed off by Julian Barrera PA 19:00 Thai Bright [facility] cp 20:08 Patient has correct armband on for positive identification. Bed in low position. Call [facility] light in reach. 20:08 No provider procedures requiring assistance completed. Patient did not have IV access [facility] during this emergency room visit. Administered Medications: 18:36 Drug: Ibuprofen PO 800 mg Route: PO; iw 19:26 Follow up: Response: No adverse reaction; Marked relief of symptoms pf1 20:19 Follow up: Response: No adverse reaction nj1 19:26 Drug: Dexamethasone IM 10 mg Route: IM; Site: right ventrogluteal; pf1 20:19 Follow up: Response: No adverse reaction nj1 Medication: 20:08 VIS not applicable for this client. nj1 Outcome: 20:05 Discharge ordered by . kristie 20:08 Discharged to home ambulatory. nj1 20:08 Condition: stable 20:08 Discharge instructions given to patient, Instructed on discharge instructions, follow up and referral plans. Demonstrated understanding of instructions, follow-up care, medications, Prescriptions given X 3. 20:19 Patient left the ED. nj1 Signatures: Julian Barrera PA PA jmm Rivera, Mary mr Shobha Carpenter, RN RN iw Thai Bright PA PA cp Finley, Pamala, RN RN pf1 Libby Dawkins RN RN nj1 Corrections: (The following items were deleted from the chart) 20:20 20:08 Discharge instructions given to patient, Instructed on discharge instructions, nj1 follow up and referral plans. Demonstrated understanding of instructions, follow-up care, nj1
--- NOTE | 2023-01-15 20:06 | EDPHYS ---
Physician Documentation [facility] Name: America Gallegos Age: 27 yrs Sex: Female : 1995 Arrival Date: 01/15/2023 Time: 17:46 Bed 12 Private MD: ED Physician James Segura HPI: 01/15 18:27 This 27 yrs old Female presents to ER via Ambulatory with complaints of Fever, Sore jmm Throat, Body aches. 18:27 The patient reports fever, not measured (subjective). Onset: The symptoms/episode jmm began/occurred gradually. Modifying factors: there are no obvious modifying factors. Associated signs and symptoms: Pertinent positives: sore throat. It is unknown whether or not the patient has had similar symptoms in the past. Historical: - Allergies: 18:27 No Known Allergies; iw - Home Meds: 18:27 depo shot [Active]; iw - PMHx: 18:27 None; iw - PSHx: 18:27 None; iw - Immunization history:: Adult Immunizations. - Social history:: Smoking status: . ROS: 18:27 Constitutional: Positive for body aches, fatigue. jmm 18:27 ENT: Positive for sore throat. 18:27 All other systems are negative. Exam: 18:27 Constitutional: This is a well developed, well nourished patient who is awake, alert, jmm and in no acute distress. Head/Face: atraumatic. Eyes: EOMI, no conjunctival erythema appreciated 18:27 Neck: Trachea midline, Supple Chest/axilla: Normal chest wall appearance and motion. Cardiovascular: Regular rate and rhythm. No edema appreciated Respiratory: Normal respirations, no respiratory distress appreciated Abdomen/GI: Non distended Back: Normal ROM Skin: General appearance color normal MS/ Extremity: Moves all extremities, no obvious deformities appreciated, no edema noted to the lower extremities Neuro: Awake and alert Psych: Behavior is normal, Mood is normal, Patient is cooperative and pleasant 18:27 ENT: Posterior pharynx: erythema, that is mild. Vital Signs: 18:25 BP 115 / 86; Pulse 100; Resp 16; Temp 98.9; Pulse Ox 100% on R/A; Weight 78.02 kg; iw Height 5 ft. 6 in. ; Pain 5/10; 20:18 BP 136 / 88; Pulse 105; Resp 18; Temp 99.5(O); Pulse Ox 100% on R/A; Pain 2/10; nj1 18:25 Body Mass Index 27.76 (78.02 kg, 167.64 cm) iw 18:25 Pain Scale: Adult iw 20:18 Pain Scale: Adult nj1 MDM: 18:42 Patient medically screened. [facility] 18:58 Differential diagnosis: viral Infection, bacterial infection, URI. Data reviewed: vital [facility] signs, nurses notes. 01/15 18:27 Order name: Strep; Complete Time: 19:52 [facility] 01/15 19:52 Interpretation: Reviewed. 01/15 18:27 Order name: COVID-19 SARS RT PCR; Complete Time: 20:04 [facility] 01/15 20:04 Interpretation: Reviewed. 01/15 18:27 Order name: Influenza Screen (a \T\ B); Complete Time: 19:52 [facility] 01/15 19:52 Interpretation: Reviewed. 01/15 19:11 Order name: Throat Culture EDMS Administered Medications: 18:36 Drug: Ibuprofen PO 800 mg Route: PO; iw 19:26 Follow up: Response: No adverse reaction; Marked relief of symptoms pf1 20:19 Follow up: Response: No adverse reaction nj1 19:26 Drug: Dexamethasone IM 10 mg Route: IM; Site: right ventrogluteal; pf1 20:19 Follow up: Response: No adverse reaction nj1 Disposition: 20:08 Co-signature as Attending Physician, James ORTEGA was immediately available on-site ms3 in the Emergency Department for consultation in the care of the patient. Disposition Summary: 01/15/23 20:05 Discharge Ordered Location: Home cp Problem: new cp Symptoms: have improved cp Condition: Stable cp Diagnosis - SARS-associated coronavirus as the cause of diseases classified elsewhere cp Followup: [facility] - With: Private Physician - When: 2 - 3 days - Reason: Recheck today's complaints, Continuance of care, Re-evaluation by your physician Discharge Instructions: - Discharge Summary Sheet [facility] - Pharyngitis [facility] - Form - Excuse from Work, School, or Physical Activity cp - COVID-19 cp - How to Protect Yourself and Others - [facility] (10/28/2021) cp - 10 Things You Can Do to Manage Your COVID-19 Symptoms at Home - [facility] (03/18/2021) cp - COVID-19: Quarantine and Isolation - [facility] (11/30/2021) cp - COVID-19: What to Do If You Are Sick - [facility] (11/22/2021) cp Forms: - Medication Reconciliation Form cp - Thank You Letter cp - Antibiotic Education cp - Prescription Opioid Use cp - Work release form nj1 Prescriptions: - Paxlovid (EUA) 300 mg (150 mg x 2)-100 mg Oral Tablet, Dose Pack - take 1 dose pack by ORAL route per package directions for 5 days; 30 tablet; cp Refills: 0, Product Selection Permitted - Lidocaine Viscous - take 5 milliliter by ORAL route every 4-6 hours; 1 unit; Refills: 0, Product cp Selection Permitted - Ibuprofen 800 mg Oral Tablet - take 1 tablet by ORAL route every 8 hours As needed take with food; 30 tablet; cp Refills: 0, Product Selection Permitted Signatures: Dispatcher [employer] Julian Tucker PA PA jmm Williams, Irene, RN RN Thai Valle PA PA cp Sims, Marcus, DO DO ms3 Jhoana Calzada RN RN pf1 Libby Dawkins RN nj1
[2023-01-15 20:24] VITALS: O2SAT 100
[2023-01-15 20:25] VITALS: BP 136/88; TEMP 99.5
== END 2023-01-15 20:19 | disposition home or self-care (01) ==
LOC: ER 17:46
DX: B97.21 SARS-associated coronavirus as the cause of diseases classified elsewhere (principal)
CPT/HCPCS: 87070; 87081; 87804 ×2; 96372; 99284; U0003; J1100

== ENCOUNTER 2024-11-19 14:22 | Emergency (ER) | payer BC ==
--- OUTSIDE RECORDS SUMMARY | 2024-11-19 14:26 | XMS REPORT | Continuity of Care Document ---
Author Name Unknown Address [address] [address] [address] [place] [address] [facility] [place] Address [address] [facility] [address] [place] [address] Care Team Providers Care Clarity Specialists Name Role Phone GC_GCBZW_Kadiyala_S Attending Clinician Chaparrita velásquez GC_GCBZW_Kadiyala_S Admitting Clinician Ulia didier Payers Payer Name Policy Type Policy Number Effective Date Expirati on Date Source [place] [id number] 2022 00:00:00 Problems Condition Name Condition Details Condition Category Status Onset Date Resolution Date Last Treatment Date Treating Clinician Comments Source Constipati on Constipati on Problem Active 7-15 00:00: 00 [facility] Testostero ne level above reference range Testostero ne Level above Reference Range Problem Active 7-15 00:00: 00 [facility] Pain in pelvis Pain in Pelvis Problem Active 6-27 00:00: 00 [facility] 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 Problem Active -30 00:00: 00 [facility] Lichen simplex of vulva Lichen Simplex of Vulva Problem Active -30 00:00: 00 [facility] Folliculit is Folliculit is Problem Active - 00:00: 00 [facility] Acute vaginitis Acute Vaginitis Problem Active - 00:00: 00 [facility] Leukoplaki a of vulva Leukoplaki a of Vulva Problem Active - 00:00: 00 [facility] Hormone abnormalit y Hormone Abnormalit y Problem Active - 00:00: 00 [facility] Intertrigo Intertrigo Problem Active 4- 00:00: 00 [facility] Female hirsutism Female Hirsutism Problem Active 4 00:00: 00 [facility] Weight gain Weight Gain Problem Active 4 00:00: 00 [facility] Amenorrhea Amenorrhea Problem Active 8- 00:00: 00 [facility] Pruritus of vulva Pruritus of Vulva Problem Active 8 00:00: 00 [facility] Initiation of depot contracept ion done Initiation of Depot Contracept ion Done Problem Active 5- 00:00: 00 [facility] Contracept ion care education Contracept ion Care Education Problem Active 5 00:00: 00 [facility] Secondary amenorrhea Secondary Amenorrhea Problem Active 5 00:00: 00 [facility] Social History Smoking Status Start Date Stop Date Source Current Every Day Smoker [facility] Medications Ordered Medication Name Filled Medication Name Start Date Stop Date Current Medication? Ordering Clinician Indication Dosage Frequency Signature (SIG) Comments Components Source clobetasol 0.05 % topical cream APPLY A THIN LAYER TO THE AFFECTED AREA(S) 2 TIMES PER DAY. clobetasol 0.05 % topical cream APPLY A THIN LAYER TO THE AFFECTED AREA(S) 2 TIMES PER DAY. No clobetasol 0.05 % topical cream APPLY A THIN LAYER TO THE AFFECTED AREA(S) 2 TIMES PER DAY. [facility] spironolact one 100 mg tablet Take 1 tablet every day by oral route for 90 days. spironolact one 100 mg tablet Take 1 tablet every day by oral route for 90 days. No 1 Q1D spironolac tone 100 mg tablet Take 1 tablet every day by oral route for 90 days. [facility] fluvoxamine 50 mg tablet TAKE ONE AND ONE-HALF (1 AND 1/2) TABLET(S) BY MOUTH ONCE A DAY. fluvoxamine 50 mg tablet TAKE ONE AND ONE-HALF (1 AND 1/2) TABLET(S) BY MOUTH ONCE A DAY. No fluvoxamin e 50 mg tablet TAKE ONE AND ONE-HALF (1 AND 1/2) TABLET(S) BY MOUTH ONCE A DAY. [facility] zolpidem 10 mg tablet zolpidem 10 mg tablet No zolpidem 10 mg tablet [facility] Caplyta 21 mg capsule Caplyta 21 mg capsule No Caplyta 21 mg capsule [facility] Liletta 20.4 mcg/24 hr (up to 8 years) 52 mg intrauterin e device Take 1 device by intrauterin e route. Liletta 20.4 mcg/24 hr (up to 8 years) 52 mg intrauterin e device Take 1 device by intrauterin e route. No 1device (s) Liletta 20.4 mcg/24 hr (up to 8 years) 52 mg intrauteri ne device Take 1 device by intrauteri ne route. [facility] nystatin 100,000 unit/gram topical powder APPLY TO THE AFFECTED AREA(S) BY TOPICAL ROUTE 2 TIMES PER DAY nystatin 100,000 unit/gram topical powder APPLY TO THE AFFECTED AREA(S) BY TOPICAL ROUTE 2 TIMES PER DAY No nystatin 100,000 unit/gram topical powder APPLY TO THE AFFECTED AREA(S) BY TOPICAL ROUTE 2 TIMES PER DAY [facility] Vital Signs Vital Name Observation Time Observation Value Comments S ource BMI (Body Mass Index) 2024-10-27 00:00:00 29.6 kg/m2 [facility] BP Systolic 2024-10-27 00:00:00 123 mm[Hg] [facility] Body Weight 2024-10-27 00:00:00 195 [lb_av] [facility] Height 2024-10-27 00:00:00 68 [in_i] [facility] BP Diastolic 2024-10-27 00:00:00 72 mm[Hg] [facility] BMI (Body Mass Index) 2024-09-26 00:00:00 28.4 kg/m2 [facility] BP Systolic 2024-09-26 00:00:00 111 mm[Hg] [facility] Height 2024-09-26 00:00:00 68 [in_i] [facility] Body Weight 2024-09-26 00:00:00 187 [lb_av] [facility] BP Diastolic 2024-09-26 00:00:00 79 mm[Hg] [facility] Body Weight 2024-08-22 00:00:00 186.4 [lb_av] [facility] BP Systolic 2024-08-22 00:00:00 113 mm[Hg] [facility] BP Diastolic 2024-08-22 00:00:00 76 mm[Hg] [facility] Height 2024-08-22 00:00:00 68 [in_i] [facility] BMI (Body Mass Index) 2024-08-22 00:00:00 28.3 kg/m2 [facility] BP Systolic 2024-05-22 00:00:00 144 mm[Hg] [facility] BMI (Body Mass Index) 2024-05-22 00:00:00 27.1 kg/m2 [facility] Height 2024-05-22 00:00:00 68 [in_i] [facility] BP Diastolic 2024-05-22 00:00:00 89 mm[Hg] [facility] Body Weight 2024-05-22 00:00:00 178 [lb_av] [facility] Body Weight 2024-03-17 00:00:00 185 [lb_av] [facility] BMI (Body Mass Index) 2024-03-17 00:00:00 28.1 kg/m2 [facility] BP Diastolic 2024-03-17 00:00:00 84 mm[Hg] [facility] Height 2024-03-17 00:00:00 68 [in_i] [facility] BP Systolic 2024-03-17 00:00:00 136 mm[Hg] [facility] BP Diastolic 2024-02-12 00:00:00 82 mm[Hg] [facility] Height 2024-02-12 00:00:00 68 [in_i] [facility] BMI (Body Mass Index) 2024-02-12 00:00:00 28.1 kg/m2 [facility] Body Weight 2024-02-12 00:00:00 185 [lb_av] [facility] BP Systolic 2024-02-12 00:00:00 125 mm[Hg] [facility] BP Diastolic 2024-01-17 00:00:00 85 mm[Hg] [facility] BMI (Body Mass Index) 2024-01-17 00:00:00 28.1 kg/m2 [facility] Body Weight 2024-01-17 00:00:00 185 [lb_av] [facility] BP Systolic 2024-01-17 00:00:00 134 mm[Hg] [facility] Height 2024-01-17 00:00:00 68 [in_i] [facility] BMI (Body Mass Index) 2023-12-24 00:00:00 28.6 kg/m2 [facility] BP Systolic 2023-12-24 00:00:00 108 mm[Hg] [facility] Height 2023-12-24 00:00:00 68 [in_i] [facility] Body Weight 2023-12-24 00:00:00 188 [lb_av] [facility] BP Diastolic 2023-12-24 00:00:00 76 mm[Hg] [facility] Procedures Procedure Date / Time Performed Performing Clinicia n Source US TRANSVAGINAL 2024-10-03 00:00:00 [facility], [facility] + pelvis, w/ contrast 2024-03-17 00:00:00 [facility] US TRANSVAGINAL 2024-02-28 00:00:00 [facility] En[facility]ters Start Date/Time End Date/Time Encounter Type Admission Type Attending [facility] Care Facility Care Department Encounter ID Source 2024-10-27 00:00:00 2024-10-27 00:00:00 KEN Valencia: [address], [place] [id number] , Ph. [facility] GC_GCBZW_[facility]* [id number] [facility] 2024-10-03 00:00:00 2024-10-03 00:00:00 Deann Rodrigez MD: [address], [place] [id number] , Ph. [facility] GC_GCBZW_[facility]* [id number] [facility] 2024-09-26 00:00:00 2024-09-26 00:00:00 Deann Rodrigez MD: [address], [place] [id number] , Ph. [facility] GC_GCBZW_[facility]* [id number] [facility] 2024-08-22 00:00:00 2024-08-22 00:00:00 JASPER Sin: [address], [place] [address] , Ph. [facility] - [facility]* [id number] [facility] 2024-06-05 00:00:00 2024-06-05 00:00:00 TESS PetersonP: [address], [place] [address] , Ph. [facility] - [facility]* [id number] [facility] 2024-05-22 00:00:00 2024-05-22 00:00:00 TESS PetersonP: [address], [place] [address] , Ph. [facility] [id number] [facility] 2024-03-17 00:00:00 2024-03-17 00:00:00 KEN Valencia: [address], [place] [address] , Ph. [facility] - [facility]* [id number] [facility] 2024-02-28 00:00:00 2024-02-28 00:00:00 Deann Rodrigez MD: [address], [place] [address] , Ph. [facility] - [facility]BZ[facility]* [id number] [facility] 2024-02-12 00:00:00 2024-02-12 00:00:00 JASPER Sin: [address], [place] [address] , Ph. [facility] GC_GCBZW_Geneva tania [facility]* [id number] [facility] 2024-01-31 00:00:00 2024-01-31 00:00:00 TESS PetersonP: [address], [place] [id number] , Ph. [facility] - GC_GCBZW_Geneva tania [facility]* [id number] [facility] 2024-01-17 00:00:00 2024-01-17 00:00:00 TESS PetersonP: [address], [address] , Ph. [facility] - GC_GCBZW_[facility]* [id number] [facility] 2024-01-02 00:00:00 2024-01-02 00:00:00 Ariadna Yates PA: [address], [place] [address] , Ph. [facility] - GC_GCBZW_[facility]* [id number] [facility] 2023-12-24 00:00:00 2023-12-24 00:00:00 TESS ValenciaP: [address], [place] [id number] , Ph. [facility] - GC_GCBZW_Geneva tania Kraig* [id number] [facility] 2023-11-29 00:00:00 2023-11-29 00:00:00 Outpatient GC_GCBZW_Ka diyala_S [facility] [id number] [facility] 2023-11-02 00:00:00 2023-11-02 00:00:00 Outpatient GC_GCBZW_Ka diyala_S [facility] [id number] [facility] 2023-04-12 00:00:00 2023-04-12 00:00:00 Outpatient GC_GCBZW_Ka diyala_S [facility] [id number] [facility] 2023-04-12 00:00:00 2023-04-12 00:00:00 Outpatient GC_GCBZW_Ka diyala_S [facility] [id number] [facility] 2023-04-03 00:00:00 2023-04-03 00:00:00 Outpatient GC_GCBZW_Ka diyala_S [facility] [id number] [facility] 2023-03-30 00:00:00 2023-03-30 00:00:00 Outpatient GC_GCBZW_Ka diyala_S [facility] [id number] [facility] Results Test Description Test Time Test Comments Results Resul t Comments Source infectious disease panel 2024-01-17 10:46:00 [facility] [Mass/volume] in Serum or [id number] 00:00:00* Test Item Value Reference Range Interpretation Comme nts DHEA-S (test code = DHEA-S) 501.0 ug/dL 98.8-340.0 H [facility] and total panel [Mass/volume] - Serum or Plasma 2023-12-27 00:00:00* Test Item Value Reference Range Interpretation Comme nts free testosterone (test code = free testosterone) 1.10 NG/dL 0.12-0.64 H sex hormone binding globulin (test code = sex hormone binding globulin) 22.40 nmol/L 10.00-57.00 testosterone (test code = testosterone) 49.5 NG/dL 8.4-48.1 H [facility] 2000 panel - Serum or [id number] 00:00:00* Test Item Value Reference Range Interpretation Comme nts total protein (test code = t otal protein) 7.1 g/dL 6.0-8.3 albumin (test code = albumin) 4.7 g/dL 3.5-5.2 total bilirubin (test code = total bilirubin) 0.8 mg/dL 0.0-1.2 direct bilirubin (test code = direct bilirubin) 0.3 mg/dL 0.0-0.3 alkaline phosphatase (test c ode = alkaline phosphatase) 58 U/L 44-147 AST (SGOT) (test code = AST (SGOT)) 19 U/L 0-32 ALT (SGPT) (test code = ALT (SGPT)) 25 U/L 0-33 globulin (test code = globulin) 2.4 g/dL 1.7-3.7 A/G ratio (test code = A/G ratio) 2.0 calc. 1.1-2.9 [facility] [Units/volume] in Serum or [id number] 00:00:00* Test Item Value Reference Range Interpretation Comme nts TSH (test code = TSH) 1.310 uIU/mL 0.500-4.530 [facility] 1995 panel - Serum or [id number] 00:00:00* Test Item Value Reference Range Interpretation Comme nts cholesterol (test code = cholesterol) 119 mg/dL 0-200 triglycerides (test code = triglycerides) 59 mg/dL 10-150 HDL cholesterol (test code = HDL cholesterol) 56 mg/dL >50 HDL risk factor (test code = HDL risk factor) 2.1 calc. VLDL cholesterol (test code = VLDL cholesterol) 12 calc Cholesterol in LDL [Mass/vol ume] in Serum or Plasma (test code = 2089-1) 52 mg/dL <100 [facility] 2000 [facility] - Serum or [id number] 00:00:00* Test Item Value Reference Range Interpretation Comme nts sodium (test code = sodium) 141 mmol/L 136-145 potassium (test code = potassium) 4.5 mmol/L 3.5-5.5 chloride (test code = chloride) 108 mmol/L 98-107 H CO2 (test code = CO2) 22 mmol/ L 23-31 L glucose (test code = glucose) 92 mg/dL 70-99 BUN (test code = BUN) 11 mg/dL 6-20 creatinine (test code = creatinine) 0.7 mg/dL 0.5-0.9 BUN/creatinine ratio (test code = BUN/creatinine ratio) 15.7 calc 10.0-28.0 eGFR non- (test code = eGFR non-) 123.345 mL/min/1.73A? >60.000 eGFR (test code = eGFR ) 148.014 mL/min/1.73A? >60.000 [facility] panel - Blood by Automated [id number] 00:00:00* Test Item Value Reference Range Interpretation Comme nts WBC (test code = WBC) 5.4 10 3.7-12.0 RBC (test code = RBC) 4.59 10 3.60-5.50 HGB (test code = HGB) 13.5 g/dL 11.5-15.6 HCT (test code = HCT) 42.1 % 34.5-46.5 MCV (test code = MCV) 91.6 um 80.0-102.0 MCH (test code = MCH) 29.4 pg 25.0-34.1 MCHC (test code = MCHC) 32.1 g/dL 29.0-35.0 RDW (test code = RDW) 14.5 % 10.9-16.9 plt (test code = plt) 226 10 136-392 MPV (test code = MPV) 9.0 um 7.4-11.1 gran % (test code = gran %) 63.6 % 36.0-78.0 lymph % (test code = lymph %) 28.5 % 12.0-48.0 mono % (test code = mono %) 5.7 % 0.0-13.0 eos % (test code = eos %) 2 % 0-8 baso % (test code = baso %) 1 % 0-2 gran # (test code = gran #) 3.4 10 1.2-6.8 lymph # (test code = lymph #) 1.5 10 1.2-3.2 mono # (test code = mono #) 0.3 10 0.3-0.8 eos # (test code = eos #) 0.1 10 0.0-0.4 baso # (test code = baso #) 0.0 10 0.0-0.2 [facility]
[2024-11-19] MEDS ORDERED: ASPIRIN 81 MG CHEWABLE TABLET ONE (14:47)
--- NOTE | 2024-11-19 14:54 | RAD REPORT ---
EXAM: Chest Single View HISTORY: 29 years Female CHEST PAIN COMPARISON: None. FINDINGS: LUNGS/PLEURA: The lungs are clear. No pleural effusions or pneumothorax. No pulmonary edema. CARDIAC/MEDIASTINUM: The cardiac silhouette is within normal limits. UPPER ABDOMEN: No significant abnormality. BONES: No acute abnormality. LINES/TUBES/OTHER: N/A IMPRESSION: No evidence of acute cardiopulmonary disease.
[2024-11-19 15:28] LABS: Absolute Eosinophils 0.1 K/uL (0-0.5); Absolute Lymphocytes (CBC) 1.9 K/uL (0.7-4.9); Absolute Monocytes 0.7 K/uL (0.1-1.3); Absolute Neutrophil 6.4 K/uL (1.8-8.0); Basophils % 0.5 % (0-1.3); Eosinophils % 0.7 % (0-4.4); Hematocrit 41.8 % (36.0-45.0); Hemoglobin 14.3 g/dL (12.0-15.0); Lymphocytes % 20.6 % (15.3-44.8); MCH 31.3 pg (27.0-35.0); MCHC 34.2 g/dL (32.0-36.0); MCV 91.5 fL (80-100); MPV 8.3 fL (7.6-11.3); Monocytes % 7.2 % (3.3-12.3); Platelets 238 thou/uL (152-406); RBC Red Blood Cell Count 4.57 M/uL (3.86-4.86); Red Cell Distribution Width 12.9 % (12.1-15.2)
[2024-11-19 15:39] LABS: Albumin 3.9 g/dL (3.4-5.0); Albumin/Globulin Ratio 1.2 (1.1-1.8); Anion Gap 9.9 mEq/L (5.0-15.0); Bilirubin Direct 0.2 mg/dL (0-0.2); Bilirubin Indirect, Calculated 0.4 mg/dL (0.2-0.8); Bilirubin Total 0.6 mg/dL (0.2-1.0); Globulin 3.3 g/dL (2.3-3.5); Magnesium 1.8 mg/dL (1.6-2.4); Potassium 3.9 mEq/L (3.5-5.1); Protein, Total 7.2 g/dL (6.4-8.2); Troponin High Sensitivity 15.8 pg/mL (<58.9)
--- NOTE | 2024-11-19 16:21 | EDPHYS ---
Physician Documentation [facility] Name: America Gallegos Age: 29 yrs Sex: Female : 1995 Arrival Date: 11/19/2024 Time: 14:22 Bed 24 Private MD: ED Physician James Segura HPI: 11/19 14:43 This 29 yrs old Female presents to ER via Ambulatory with complaints of Chest Pain, ms3 Breathing Difficulty. 14:43 29-year-old female with no past medical history presents to the emergency department ms3 for 2-day history of chest pain. Patient states the pain is not to become better therefore prompting her to come to the emergency department. Patient endorses shortness of breath. Patient denies nausea, vomiting, sweating. She denies any alleviating or inciting factors.. Historical: - Allergies: 14:41 No Known Allergies; bp - Immunization history:: Adult Immunizations up to date. - Infectious Disease History:: Denies. - Social history:: Smoking status: Patient denies any tobacco usage or history of. ROS: 14:43 Constitutional: Negative for fever, and chills. ms3 14:43 Abdomen/GI: Negative for abdominal pain, nausea, vomiting, diarrhea, and constipation, MS/Extremity: Negative for injury and deformity, Skin: Negative for injury, rash, and discoloration, 14:43 Cardiovascular: Positive for chest pain, 14:43 Respiratory: Positive for shortness of breath, Exam: 14:43 Constitutional: This is a well developed, well nourished patient who is awake, alert, ms3 and in no acute distress. Cardiovascular: Regular rate and rhythm with a normal S1 and S2. No gallops, murmurs, or rubs. Normal PMI, no JVD. No pulse deficits. Respiratory: Lungs have equal breath sounds bilaterally, clear to auscultation and percussion. No rales, rhonchi or wheezes noted. No increased work of breathing, no retractions or nasal flaring. Abdomen/GI: Soft, non-tender, with normal bowel sounds. No distension or tympany. No guarding or rebound. No evidence of tenderness throughout. Skin: Warm, dry with normal turgor. Normal color with no rashes, no lesions, and no evidence of cellulitis. 14:52 ECG was reviewed by the Attending Physician. ms3 Vital Signs: 14:40 BP 129 / 80; Pulse 80; Resp 17; Temp 98; Pulse Ox 100% ; bp 15:44 BP 111 / 74; Pulse 73; Resp 21; Pulse Ox 98% ; bp 16:43 BP 115 / 83; Pulse 80; Resp 15; Pulse Ox 100% ; bp MDM: 14:43 Differential diagnosis: abnormal EKG, acute myocardial infarction, coronary artery ms3 disease chest wall pain. 14:52 Medical Screening Exam initiated ms3 16:18 HEART Score: History: Slightly Suspicious (0), ECG: Normal (0), Age: < or = 45 years ms3 (0), Risk Factors: No Risk Factors Known (0), Troponin: < or = 1 x Normal Limit (0), Total Score = 0. Data reviewed: vital signs, nurses notes, lab test result(s), EKG, radiologic studies, and as a result, I will discharge patient. I considered the following discharge prescriptions or medication management in the emergency department Medications were administered in the Emergency Department. See MAR. Independent interpretation of the following test(s) in the Emergency Department EKG: See my EKG interpretation above. Counseling: I had a detailed discussion with the patient and/or guardian regarding the historical points, exam findings, and any diagnostic results supporting the discharge/admit diagnosis, lab results, radiology results, the need for outpatient follow up, to return to the emergency department if symptoms worsen or persist or if there are any questions or concerns that arise at home. Special discussion: Based on the patient's history, exam, and Dx evaluation, there is no indication for emergent intervention or inpatient Tx. It is understood by the patient/guardian that if the Sx's persist or worsen they need to return immediately for re-evaluation. ED course: Discussed labs with patient. Troponin normal, EKG normal sinus rhythm, chest x-ray without any acute findings. Patient states her symptoms are improving. Patient is alert and oriented x 4, no apparent distress, nontoxic-appearing, speaking full sentences. Patient to follow-up with primary care physician in 2 to 3 days. She understands and agrees with plan. All questions were answered. Return precautions discussed include worsening symptoms, or any other concerns.. 11/19 14:33 Order name: Basic Metabolic Panel; Complete Time: 16:12 ms3 11/19 14:33 Order name: CBC with Diff; Complete Time: 16:12 ms3 11/19 14:33 Order name: LFT's; Complete Time: 16:12 ms3 11/19 14:33 Order name: Magnesium; Complete Time: 16:12 ms3 11/19 14:33 Order name: Troponin HS; Complete Time: 16:12 ms3 11/19 14:33 Order name: XRAY Chest (1 view); Complete Time: 14:54 ms3 11/19 14:33 Order name: EKG; Complete Time: 14:34 ms3 11/19 14:33 Order name: Cardiac monitoring; Complete Time: 14:43 ms3 11/19 14:33 Order name: EKG - Nurse/Tech; Complete Time: 14:43 ms3 11/19 14:33 Order name: IV Saline Lock; Complete Time: 14:55 ms3 11/19 14:33 Order name: Labs collected and sent; Complete Time: 14:55 ms3 11/19 14:33 Order name: O2 Per Protocol; Complete Time: 14:44 ms3 11/19 14:33 Order name: O2 Sat Monitoring; Complete Time: 14:44 ms3 EC:52 Rate is 76 beats/min. Rhythm is regular. QRS Reading is Normal. AL interval is normal. QRS ms3 interval is normal. Clinical impression: Normal ECG. Interpreted by me. Reviewed by me. Administered Medications: 14:55 Drug: Aspirin PO Chewable Tablet 324 mg PO once; 81 mg tablets x 4 Route: PO; bp 16:44 Follow up: Response: No adverse reaction bp Disposition Summary: 11/19/24 16:20 Discharge Ordered Notes: Location: Home ms3 Condition: Stable ms3 Diagnosis - Chest pain, unspecified ms3 Followup: ms3 - With: Edil Bravo DO - When: 2 - 3 days - Reason: Recheck today's complaints Discharge Instructions: - Discharge Summary Sheet ms3 - Nonspecific Chest Pain, Adult ms3 Forms: - Medication Reconciliation Form ms3 - Antibiotic Education ms3 - Prescription Opioid Use ms3 - Patient Portal Instructions ms3 - Leadership Thank You Letter ms3 Signatures: [facility] Shane Ford, RN RN James Mendoza DO DO ms3
--- NOTE | 2024-11-19 16:21 | ER ---
Nurse's Notes [facility] Name: America Gallegos Age: 29 yrs Sex: Female : 1995 Arrival Date: 11/19/2024 Time: 14:22 Bed 24 Private MD: Diagnosis: Chest pain, unspecified Presentation: 11/19 14:40 Chief complaint: Patient states: CHEST PAIN SINCE Y/D. Coronavirus screen: At this bp time, the client does not indicate any symptoms associated with coronavirus-19. Ebola Screen: No symptoms or risks identified at this time. Initial Sepsis Screen: Does the patient meet any 2 criteria? No. Patient's initial sepsis screen is negative. Does the patient have a suspected source of infection? No. Patient's initial sepsis screen is negative. Risk Assessment: Do you want to hurt yourself or someone else? Patient reports no desire to harm self or others. Onset of symptoms is unknown. 14:40 Method Of Arrival: Ambulatory bp 14:40 Acuity: LYDIA 3 bp Triage Assessment: 14:41 General: Appears in no apparent distress. Behavior is cooperative, appropriate for age, bp anxious. Pain: Complains of pain in chest. EENT: No deficits noted. Neuro: No deficits noted. Cardiovascular: Rhythm is sinus rhythm. Respiratory: No deficits noted. GI: No signs and/or symptoms were reported involving the gastrointestinal system. : No signs and/or symptoms were reported regarding the genitourinary system. Derm: No deficits noted. Musculoskeletal: No deficits noted. Historical: - Allergies: 14:41 No Known Allergies; bp - Immunization history:: Adult Immunizations up to date. - Infectious Disease History:: Denies. - Social history:: Smoking status: Patient denies any tobacco usage or history of. Screenin:44 [facility] ED Fall Risk Assessment (Adult) History of falling in the last 3 months, bp including since admission No falls in past 3 months (0 pts) Confusion or Disorientation No (0 pts) Intoxicated or Sedated No (0 pts) Impaired Gait No (0 pts) Mobility Assist Device Used No (0 pt) Altered Elimination No (0 pt) Score/Fall Risk Level 0 - 2 = Low Risk Oriented to surroundings. Abuse screen: Denies threats or abuse. Denies injuries from another. Nutritional screening: No deficits noted. Tuberculosis screening: No symptoms or risk factors identified. Assessment: 15:44 Reassessment: Patient appears in no apparent distress at this time. Patient is alert, bp oriented x 3, equal unlabored respirations, skin warm/dry/pink. Vital Signs: 14:40 BP 129 / 80; Pulse 80; Resp 17; Temp 98; Pulse Ox 100% ; bp 15:44 BP 111 / 74; Pulse 73; Resp 21; Pulse Ox 98% ; bp 16:43 BP 115 / 83; Pulse 80; Resp 15; Pulse Ox 100% ; bp ED Course: 14:25 Patient arrived in ED. cj3 14:31 Shane Reveles, CORA is Primary Nurse. bp 14:33 James Segura DO is Attending Physician. ms3 14:40 Triage completed. bp 14:41 Arm band placed on. bp 14:50 XRAY Chest (1 view) In Process Unspecified. EDMS 14:56 Initial lab(s) drawn, by me, sent to lab. Inserted saline lock: 22 gauge in right bp forearm, using aseptic technique. Blood collected. Flushed with 10 mL NS. 15:44 Patient has correct armband on for positive identification. Client placed on continuous bp cardiac and pulse oximetry monitoring. NIBP monitoring applied. contract processor on. Pulse ox on. NIBP on. 15:44 Patient maintains SpO2 saturation greater than 95% on room air. bp 16:20 Edil Bravo DO is Referral Physician. ms3 16:44 Provided Education on: NA. bp 16:44 No provider procedures requiring assistance completed. IV discontinued, intact, bp bleeding controlled, No redness/swelling at site. Pressure dressing applied. Administered Medications: 14:55 Drug: Aspirin PO Chewable Tablet 324 mg PO once; 81 mg tablets x 4 Route: PO; bp 16:44 Follow up: Response: No adverse reaction bp Outcome: 16:20 Discharge ordered by MD. ms3 16:44 Discharged to home ambulatory, bp 16:44 Condition: stable 16:44 Discharge instructions given to patient, Instructed on discharge instructions, follow up and referral plans. Demonstrated understanding of instructions, follow-up care, 16:45 Patient left the ED. bp Signatures: Dispatcher [employer] EDMS Shane Reveles RN RN bp James Segura DO DO ms3 Margarita Bobo cj3
[2024-11-19 22:44] VITALS: TEMP 98
[2024-11-19 22:46] VITALS: BP 115/83; O2SAT 100
--- NOTE | 2024-11-24 12:18 | EKG ---
Test Date: 2024-11-19 Test Time: 14:35:26 Heel Scorer: HOWARD MEASUREMENT RESULTS: Intervals: Rate: 76 NV: 152 QRSD: 92 QT: 356 QTc: 400 [place]: P: 60 NV: 152 QRS: 80 T: 69 INTERPRETIVE STATEMENTS: Normal sinus rhythm Normal ECG Compared to ECG 07/16/2011 20:12:59 No significant changes Electronically Signed On 11-24-24 12:07:27 CDT by Steve Aponte
== END 2024-11-19 16:45 | disposition home or self-care (01) ==
LOC: ER 14:22
DX: R07.9 Chest pain, unspecified (principal); R06.02 Shortness of breath
CPT/HCPCS: 36415; 71045; 80048; 80076; 83735; 84484; 85025; 93005; 99284